=== PATIENT | male | born 1985 | race Two or more races ===

== ENCOUNTER 2024-07-07 13:36 | Emergency (ER) | payer OTHER ==
[~2024-07-07] VITALS: Ht 195.6 cm; Wt 119.5 kg
[2024-07-07] MEDS: LIDOCAINE 2%HCL (LOCAL ANESTH.) INJ 20ML MDV ID ONE (14:15)
[2024-07-07] MEDS: LIDOCAINE 1% HCL (LOCAL ANESTH.) INJ 20ML MDV IJ ONE (14:15)
--- NOTE | 2024-07-07 15:12 | ED.PDOC ---
HPI Comments 39-year-old male patient presents to the clinic for laceration to the 5th digit of the left hand. Patient reports that he cut his finger using a knife while trying to fix a door knob. Patient states that he came into the emergency room 1 hour after injury. Neurovascular intact. Patient has decreased range of motion so digit due to pain and swelling. Patient has tenderness to palpation to the 5th digit. FDP and FDS evaluated and intact. Patient reports that his last tetanus vaccine was 10 years ago Chief Complaint: Laceration Time Seen by MD: 14:09 Reviewed Notes: Nurses Notes, Medications Allergies: Coded Allergies: NO KNOWN ALLERGIES (Unverified , 07/07/24) Home Meds Active Scripts Ibuprofen (Ibuprofen) 600 Mg Tab, 1 TAB PO TID for 30 Days, #90 TAB 0 Refills Prov:ISABEL LAWSON ZANDRA 07/07/24 Mode of Arrival: Ambulatory Laceration Location: Digit #5 (left , 5th digit, palmar surface, between the DIP and PIP joints) Skin Type: Linear Depth of Injury: Skin, SQ Tendon Injury: 0% Capillary Refill: < 3 seconds Tender: Moderate Discharge: None Erythema: Localized to Wound Edges Family History Family History: Reviewed,noncontributory to illness Constitutional: denies: chills, diaphoresis, fatigue, fever, malaise, sweats, weakness, others EENTM: denies: blurred vision, double vision, ear bleeding, ear discharge, ear drainage, ear pain, ear ringing, eye pain, eye redness, hearing loss, mouth pain, mouth swelling, nasal discharge, nose bleeding, nose congestion, nose pain , photophobia, tearing, throat pain, throat swelling, voice changes, others Respiratory: denies: cough, hemoptysis, orthopnea, SOB at rest, shortness of breath, SOB with excertion, stridor, wheezing, others Cardiovascular: denies: chest pain, dizzy spells, diaphoresis, Dyspnea on exertion, edema, irregular heart beat, left arm pain, lightheadedness, palpitations, PND, syncope, others Gastrointestinal: denies: abdomen distended, abdominal pain, blood streaked bowels, constipated, diarrhea, dysphagia, difficulty swallowing, hematemesis, melena, nausea, poor appetite, poor fluid intake, rectal bleeding, rectal pain, vomiting, others Genitourinary: denies: burning, dysuria, flank pain, frequency, hematuria, incontinence, penile discharge, penile sore, pain, testicle pain, testicle swelling, urgency, others Neurological: denies: dizziness, fainting, headache, left sided numbness, left sided weakness, numbness, paresthesia, pre-existing deficit, right sided numbness, right sided weakness, seizure, speech problems, tingling, tremors, weakness, others Musculoskeletal: denies: back pain, gout, joint pain, joint swelling, muscle pain, muscle stiffness, neck pain, others Integumetry: reports: laceration Allergic/Immunocompromised: denies: Difficulty Healing, Frequent Infections, Hives, Itching, others Hematologic/Lymphatic: denies: anemia, blood clots, easy bleeding, easy bruising, swollen glands, others Endocrine: denies: excessive hunger, excessive sweating, excessive thirst, excessive urination, flushing, intolerance to cold, intolerance to heat, unexpla ined weight gain, unexplained weight loss, others Psychiatric: denies: anxiety, bipolar disorder, depression, hopeless, panic disorder, schizophrenia, sleepless, suicidal, others All Other Systems: Reviewed and Negative Physical Exam General Appearance: No Apparent Distress, Normal HEENT: Normal ENT Inspection, Pharynx Normal, TMs Normal Neck: Full Range of Motion, Non-Tender, Normal, Normal Inspection Respiratory: Chest Non-Tender, Lungs Clear, No Accessory Muscle Use, No Respiratory Distress, Normal Breath Sounds Cardiovascular: No Edema, No JVD, No Murmur, No Gallop, Normal Peripheral Pulses, Regular Rate/Rhythm Breast Exam: Deferred Gastrointestinal: No Organomegaly, Non Tender, No Pulsatile Mass, Normal Bowel Sounds, Soft Genitalia: Deferred Pelvic: Deferred Rectal: Deferred Extremities: No calf tenderness, Normal capillary refill, Normal inspection, Normal range of motion, Non-tender, No pedal edema Musculoskeletal : Location: Left Extremity Location: Little Finger Apperance: Limited ROM (due to pain) Neurologic: Alert, dental assistant II-XII nml as Tested, No Motor Deficits, Normal Affect, Normal Mood, No Sensory Deficits Cerebellar Function: Normal Reflexes: Normal Skin: Dry, Lacerations (5th digit, plantar portion between DIP and PIP joints. approximately 4 cm in length with protruding subcutaneous tissue. ), Normal Color, Warm Lymphatic: No Adenopathy Was a procedure done? Was a procedure done?: Yes Sedation Sedation?: No Laceration Repair : Anesthetic: Lidocaine, Without epi Laceration Repair Prep: Saline, Betadine, Manual Scrub Laceration Repair Wound Comple: epidermis/dermis repair Laceration Repair: Number of sutures (7), Skin, Size (4.0), Simple, Bacitracin, Non-adherent gauze Informed consent obtained: Yes Risks, benefits, and alternati: Yes Differential diagnosis Generic Laceration: Fracture, Neurovascular Injury, Tendon Injury, Laceration Differential Diagnosis: N/A X-Ray, Labs, Meds, VS Vital Signs Date Time Temp Pulse Resp B/P (MAP) Pulse Ox O2 Delivery O2 Flow Rate FiO2 07/07/24 14:31 98.0 7 18 146/90 (108) 98 PATIENT: HUMERA WOODSONCT: [id number]: [id number] : 1985 LOC: ER ROOM / BED: / AGE / SEX: 39 / M ADM STATUS: REG ER SERVICE 1410 ORDERING PHYSICIAN: ISABEL LAWSON [employer]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 Comparison: None FINDINGS: There is no evidence of acute fracture or dislocation. The visualized joint space is well maintained. The alignment is anatomical. There is no radiopaque foreign body. IMPRESSION: No acute fracture or dislocation. ATED BY: MAYTE WALKER MD DICTATED DATE/TIME: 07/07/241524 SIGNED BY: MAYTE WALKER MD SIGNED DATE/TIME: 07/07/24 152 CC: X-Ray, Labs, Meds, VS Comment 39-year-old patient presents to the emergency room for laceration to the 5th digit of the left hand. Patient reports that he was trying to fix a door knob and cut his finger with a knife. Patient came to the ER 1 hour after injury occurred. No neurovascular compromise. Cap refill less than sec 3 seconds. Patient has full motion in both. Evaluated FDP is FDS and intact. Seven sutures placed in laceration on the 5th digit of the left hand. Patient tolerated well. Bacitracin and nonadhesive dressing placed on wound. Patient advised to follow up with primary care physician. Patient advised to monitor wound for signs of infection. On re-evaluation patient has symptomatic improvement. Patient is stable for discharge at this time. All test results and diagnostic imaging have been interpreted. All diagnostic findings, discharge care, and education instruction provided to the patient. Follow-up with PCP in 2-3 days Patient verbalized understanding, discharge instructions and agrees to treatment plan Vital signs are stable Patient is ambulatory Patient advised of which symptoms necessitate a return visit to the emergency room. Patient to return emergency room for any new worsening symptoms. Patient is aware that the purpose of this visit is for an acute medical emergency requiring emergent stabilization. Chronic conditions, including malignancies have not been ruled out. Patient is instructed to follow up with PCP as directed for continued care and workup. If unable to arrange follow up, patient is to return to the emergency room for reassessment. Patient was given verbal and written discharge instructions and acknowledges understanding Time of 1ST Reevaluation: 16:19 Reevaluation 1ST: Improved Patient Education/Counseling: Diagnosis, Treatment, Prognosis Family Education/Counseling: No Family Present Departure 1 Departure Time of Disposition: 16:56 Impression: Primary Impression: Laceration of finger of left hand Qualified Codes: S61.217A - Laceration without foreign body of left little finger without damage to nail, initial encounter Disposition: HOME / SELF CARE / HOMELESS Condition: Stable e-Prescriptions Amoxicillin & Pot Clavulanate (AUGMENTIN TABLET) 875 Mg Tb 875 MG PO BID for 5 Days, #10 TAB Prov: ISABEL LAWSON [facility] 07/07/24 Ibuprofen (Ibuprofen) 600 Mg Tab 1 TAB PO TID for 30 Days, #90 TAB 0 Refills Prov: ISABEL LAWSON [facility] 07/07/24 ISABEL LAWSON Jul 07, 2024 15:12
--- NOTE | 2024-07-07 15:26 | DVH ---
CLINICAL INDICATION: laceration, trauma, pain TECHNIQUE: 3 radiographic views of the left hand were obtained. Comparison: None FINDINGS: There is no evidence of acute fracture or dislocation. The visualized joint space is well maintained. The alignment is anatomical. There is no radiopaque foreign body. IMPRESSION: No acute fracture or dislocation.
[2024-07-07] MEDS ORDERED: IBUP-1454 PO (17:16)
[2024-07-07] MEDS ORDERED: AUG875T PO (17:19)
[2024-07-07 17:31] VITALS: BP 159/94; PULSE 84; RESP 16; TEMP 98.1; O2SAT 98
[2024-07-07] MEDS: NEOMYCIN-BACITRACIN-POLYM UNITDOSE PKG TOP OINT TOP ONE (17:51)
[2024-07-07] MEDS: TETANUS-DIPTH-ACEL PERTUSSIS 0.5ML SYR Tdap IM ONE (17:51)
[2024-07-07] MEDS: cefTRIAXone SOD 1,000 MG VL IM ONE (17:52)
[2024-07-07] MEDS: KETOROLAC TROMETH 60MG/2ML VIAL IM ONE (17:52)
== END 2024-07-07 18:05 | disposition home or self-care (01) ==
LOC: ER 13:36
DX: S61.217A Laceration without foreign body of left little finger without damage to nail, initial encounter (principal); W26.0XXA Contact with knife, initial encounter; Y93.89 Activity, other specified; Y92.89 Other specified places as the place of occurrence of the external cause; Y99.8 Other external cause status
CPT/HCPCS: 12002; 73130; 90471; 90715; 96372; 99284; J0696; J1885; J2003